=== PATIENT | male | born 1960 | race Caucasian/White ===

== ENCOUNTER 2017-04-08 23:56 | Inpatient (IN) | payer OTHER ==
[~2017-04-08] VITALS: Ht 170.2 cm; Wt 56.7 kg
[2017-04-09 00:06] VITALS: BP_SYST 106
[2017-04-09] MEDS ORDERED: NACL 0.9% 1,000 ML IV ONE ×2 (00:45→02:15)
[2017-04-09 01:01] LABS: MEAN CORPUSCULAR HEMOGLOBIN 30 pg (27-31); MEAN CORPUSCULAR HGB CONC 33 % (32-36); MEAN CORPUSCULAR VOLUME 91 fL (79.0-98.0); MONOCYTES # (AUTO) 0.9 K/uL (0.0-1.0); NEUTROPHILS % (AUTO) 90.3 % (40.0-70.0)
[2017-04-09 01:06] LABS: BASOPHILS % (AUTO) 0.2 % (0.0-2.0); HEMATOCRIT 40.1 % (36-54); HEMOGLOBIN 13.3 g/dL (14.0-18.0); LYMPHOCYTES # (AUTO) 0.5 K/uL (1.0-5.5); LYMPHOCYTES % (AUTO) 3.3 % (20.5-51.5); MONOCYTES % (AUTO) 6.2 % (1.7-9.3); NEUTROPHILS # (AUTO) 12.4 K/uL (1.8-7.7); PLATELET COUNT (AUTO) 202 K/uL (130-430); RED BLOOD CELL COUNT(AUTO) 4.42 MIL/uL (4.2-6.2); WHITE BLOOD COUNT (AUTO) 13.8 K/uL (4.8-10.8)
[2017-04-09 01:08] LABS: CALCIUM 9.4 mg/dL (8.4-11.0); CREATININE 0.87 mg/dL (0.55-1.30); POTASSIUM 4.3 mmol/L (3.5-5.1)
[2017-04-09 01:13] LABS: ALBUMIN 3.3 g/dL (3.4-4.8); TOTAL BILIRUBIN 1.1 mg/dL (0.0-1.0)
[2017-04-09] MEDS ORDERED: HALOPERIDOL LACTATE 5 MG/ML VIAL IM PRN (03:00)
[2017-04-09] MEDS ORDERED: VIS50 PO (03:37)
[2017-04-09] MEDS ORDERED: DULR10 RC (03:37)
[2017-04-09] MEDS ORDERED: ACET325T53 PO (03:37)
[2017-04-09] MEDS ORDERED: OLAN20TA3 PO (03:37)
[2017-04-09] MEDS ORDERED: TRAZ150T77 PO (03:37)
[2017-04-09] MEDS: D5LR 1,000 ML IV SCH ×3 (03:38→23:54)
[2017-04-09 03:40] VITALS: BP_SYST 107
[2017-04-09 11:32] VITALS: BP_SYST 124
[2017-04-09] MEDS ORDERED: OLANZapine IntraMuscular 10 MG VIAL (FOR I.M. INJECTION ONLY) IM ONE (13:00)
[2017-04-09] MEDS ORDERED: QUEtiapine FUMARATE 100 MG TABLET PO ONE (14:45)
[2017-04-09] MEDS ORDERED: MINERAL OIL 133 ML ENEMA RC ONE (14:45)
[2017-04-09 16:07] VITALS: BP_SYST 122
[2017-04-09 18:11] LABS: BILIRUBIN,URINE NEGATIVE (NEGATIVE); BLOOD, URINE NEGATIVE (NEGATIVE); CLARITY/URINE CLEAR (CLEAR); COLOR,URINE AMBER (YELLOW); GLUCOSE,URINE NEGATIVE (NEGATIVE); KETONES,URINE 3+ (NEGATIVE); LEUKOCYTE ESTERASE ,URINE NEGATIVE (NEGATIVE); NITRITE, URINE NEGATIVE (NEGATIVE); PH,URINE 5.5 (5.0-8.0); PROTEIN URINE TRACE (NEGATIVE); UROBILINOGEN,URINE 0.2 (0.2-1.0)
[2017-04-09 18:13] LABS: BACTERIA,URINE FEW /HPF (None Seen); MUCUS,URINE None Seen /LPF (None Seen); RBC,URINE 0-3 /HPF (0-3); WBC,URINE 0-3 /HPF (0-3)
[2017-04-09] MEDS ORDERED: QUEtiapine FUMARATE 100 MG TABLET PO SCH (21:00)
[2017-04-10 00:25] VITALS: BP_SYST 119
[2017-04-10 05:35] VITALS: BP_SYST 119
[2017-04-10 07:49] VITALS: BP_SYST 122
[2017-04-10] MEDS: D5LR 1,000 ML IV SCH ×2 (08:10→19:05)
[2017-04-10] MEDS: POLYETHYLENE GLYCOL 3350, 17 GM/ POWD.PACK PO SCH (09:00)
[2017-04-10] MEDS: QUEtiapine FUMARATE 100 MG TABLET PO SCH ×2 (09:00→21:29)
[2017-04-10] MEDS: HALOPERIDOL LACTATE 5 MG/ML VIAL IM SCH ×2 (09:01→21:13)
[2017-04-10 12:36] VITALS: BP_SYST 101
[2017-04-10] MEDS ORDERED: OLANZapine IntraMuscular 10 MG VIAL (FOR I.M. INJECTION ONLY) IM ONE (15:30)
[2017-04-10 16:00] VITALS: BP_SYST 104
[2017-04-10 20:00] VITALS: BP_SYST 102
[2017-04-10] MEDS: LORazepam 2 MG/ML VIAL IVP PRN (21:20)
[2017-04-11 02:17] VITALS: BP_SYST 114
[2017-04-11] MEDS: D5LR 1,000 ML IV SCH ×2 (05:00→14:47)
[2017-04-11 08:00] VITALS: BP_SYST 116
[2017-04-11] MEDS: POLYETHYLENE GLYCOL 3350, 17 GM/ POWD.PACK PO SCH (08:12)
[2017-04-11] MEDS: QUEtiapine FUMARATE 100 MG TABLET PO SCH ×2 (08:12→20:18)
[2017-04-11] MEDS: HALOPERIDOL LACTATE 5 MG/ML VIAL IM SCH (08:13)
[2017-04-11 12:00] VITALS: BP_SYST 118
[2017-04-11 13:21] LABS: BASOPHILS % (AUTO) 0.2 % (0.0-2.0); HEMOGLOBIN 11.1 g/dL (14.0-18.0)
[2017-04-11 13:25] LABS: EOSINOPHILS % (AUTO) 0.1 % (0.0-4.0); HEMATOCRIT 33.2 % (36-54); LYMPHOCYTES # (AUTO) 0.5 K/uL (1.0-5.5); LYMPHOCYTES % (AUTO) 5.8 % (20.5-51.5); MEAN CORPUSCULAR HEMOGLOBIN 31 pg (27-31); MEAN CORPUSCULAR HGB CONC 34 % (32-36); MEAN CORPUSCULAR VOLUME 91 fL (79.0-98.0); MONOCYTES # (AUTO) 0.5 K/uL (0.0-1.0); MONOCYTES % (AUTO) 5.7 % (1.7-9.3); NEUTROPHILS # (AUTO) 8.2 K/uL (1.8-7.7); NEUTROPHILS % (AUTO) 88.2 % (40.0-70.0); PLATELET COUNT (AUTO) 187 K/uL (130-430); RED BLOOD CELL COUNT(AUTO) 3.65 MIL/uL (4.2-6.2); WHITE BLOOD COUNT (AUTO) 9.2 K/uL (4.8-10.8)
[2017-04-11 13:37] LABS: CALCIUM 8.5 mg/dL (8.4-11.0); CREATININE 0.76 mg/dL (0.55-1.30); POTASSIUM 3.3 mmol/L (3.5-5.1)
[2017-04-11 13:53] LABS: ALBUMIN 2.2 g/dL (3.4-4.8); THYROID STIMULATING HORMONE 0.17 uIu/mL (0.34-4.82); TOTAL BILIRUBIN 0.5 mg/dL (0.0-1.0)
[2017-04-11] MEDS ORDERED: MAGNESIUM SULFATE 50 ML IV ONE (14:00)
[2017-04-11] MEDS ORDERED: POTASSIUM CHLORIDE 40 MEQ, LIDOCAINE JECT 2% PF 100 MG 50 MG in NS 250 ML IV ONE (15:00)
[2017-04-11 16:01] VITALS: BP_SYST 102
[2017-04-11] MEDS: OLANZapine 10 MG TABLET PO SCH (17:48)
[2017-04-11] MEDS ORDERED: TAMSULOSIN HCL 0.4 MG CAP PO ONE (19:00)
[2017-04-11 20:00] VITALS: BP_SYST 112
[2017-04-11] MEDS: MIRTAZAPINE 15 MG TABLET PO SCH (20:18)
[2017-04-11] MEDS: LORazepam 2 MG/ML VIAL IVP PRN (20:19)
[2017-04-12] VITALS: BP_SYST 97
[2017-04-12] MEDS: D5LR 1,000 ML IV SCH ×3 (01:15→22:20)
[2017-04-12 04:00] VITALS: BP_SYST 86
[2017-04-12] MEDS ORDERED: DOCUSATE SODIUM 100 MG CAPSULE PO PRN (07:45)
[2017-04-12] MEDS ORDERED: MILK OF MAGNESIA 30 ML UDC PO ONE (07:45)
[2017-04-12 08:00] VITALS: BP_SYST 88
[2017-04-12] MEDS: TAMSULOSIN HCL 0.4 MG CAP PO SCH (09:06)
[2017-04-12] MEDS: QUEtiapine FUMARATE 100 MG TABLET PO SCH ×2 (09:06→22:22)
[2017-04-12] MEDS: POLYETHYLENE GLYCOL 3350, 17 GM/ POWD.PACK PO SCH (09:06)
[2017-04-12 12:00] VITALS: BP_SYST 91
[2017-04-12 13:18] LABS: BASOPHILS % (AUTO) 0.3 % (0.0-2.0); EOSINOPHILS % (AUTO) 0.1 % (0.0-4.0); HEMATOCRIT 31.4 % (36-54); HEMOGLOBIN 10.7 g/dL (14.0-18.0); LYMPHOCYTES # (AUTO) 0.6 K/uL (1.0-5.5); LYMPHOCYTES % (AUTO) 12.1 % (20.5-51.5); MEAN CORPUSCULAR HEMOGLOBIN 31 pg (27-31); MEAN CORPUSCULAR HGB CONC 34 % (32-36); MEAN CORPUSCULAR VOLUME 90 fL (79.0-98.0); MONOCYTES # (AUTO) 0.5 K/uL (0.0-1.0); MONOCYTES % (AUTO) 9.3 % (1.7-9.3); NEUTROPHILS % (AUTO) 78.2 % (40.0-70.0); PLATELET COUNT (AUTO) 200 K/uL (130-430); RED BLOOD CELL COUNT(AUTO) 3.49 MIL/uL (4.2-6.2); RED CELL DISTRIBUTION WIDTH 12.3 % (9.0-15.0); WHITE BLOOD COUNT (AUTO) 5.1 K/uL (4.8-10.8)
[2017-04-12 13:27] LABS: CALCIUM 8.2 mg/dL (8.4-11.0); CREATININE 0.79 mg/dL (0.55-1.30); POTASSIUM 3.3 mmol/L (3.5-5.1)
[2017-04-12] MEDS ORDERED: POTASSIUM CHLORIDE 20 MEQ TAB.PRT.SR PO ONE (14:15)
[2017-04-12 16:00] VITALS: BP_SYST 101
[2017-04-12] MEDS: OLANZapine 10 MG TABLET PO SCH (17:40)
[2017-04-12] MEDS: MIRTAZAPINE 15 MG TABLET PO SCH (22:23)
[2017-04-13 00:09] VITALS: BP_SYST 101
[2017-04-13 08:00] VITALS: BP_SYST 115
[2017-04-13] MEDS: TAMSULOSIN HCL 0.4 MG CAP PO SCH (09:12)
[2017-04-13] MEDS: POLYETHYLENE GLYCOL 3350, 17 GM/ POWD.PACK PO SCH (09:12)
[2017-04-13] MEDS: D5LR 1,000 ML IV SCH ×2 (09:12→20:12)
[2017-04-13] MEDS: QUEtiapine FUMARATE 100 MG TABLET PO SCH ×2 (09:13→21:03)
[2017-04-13] MEDS: POTASSIUM CHLORIDE 20 MEQ TAB.PRT.SR PO SCH (09:13)
[2017-04-13 12:00] VITALS: BP_SYST 108
[2017-04-13 13:01] LABS: BASOPHILS % (AUTO) 0.2 % (0.0-2.0); EOSINOPHILS % (AUTO) 0.1 % (0.0-4.0); HEMATOCRIT 33.7 % (36-54); HEMOGLOBIN 11.4 g/dL (14.0-18.0); LYMPHOCYTES # (AUTO) 0.5 K/uL (1.0-5.5); MEAN CORPUSCULAR HEMOGLOBIN 31 pg (27-31); MEAN CORPUSCULAR HGB CONC 34 % (32-36); MEAN CORPUSCULAR VOLUME 90 fL (79.0-98.0); MONOCYTES # (AUTO) 0.4 K/uL (0.0-1.0); MONOCYTES % (AUTO) 7.4 % (1.7-9.3); NEUTROPHILS # (AUTO) 4.3 K/uL (1.8-7.7); NEUTROPHILS % (AUTO) 82.3 % (40.0-70.0); PLATELET COUNT (AUTO) 221 K/uL (130-430); RED BLOOD CELL COUNT(AUTO) 3.73 MIL/uL (4.2-6.2); RED CELL DISTRIBUTION WIDTH 12.1 % (9.0-15.0); WHITE BLOOD COUNT (AUTO) 5.3 K/uL (4.8-10.8)
[2017-04-13 13:41] LABS: CALCIUM 8.4 mg/dL (8.4-11.0); CREATININE 0.82 mg/dL (0.55-1.30); POTASSIUM 4.3 mmol/L (3.5-5.1)
[2017-04-13 13:46] LABS: TOTAL BILIRUBIN 0.4 mg/dL (0.0-1.0)
[2017-04-13 16:54] VITALS: BP_SYST 116
[2017-04-13] MEDS: LORazepam 2 MG/ML VIAL IVP PRN (18:49)
[2017-04-13 19:10] VITALS: BP_SYST 97
[2017-04-13] MEDS: MIRTAZAPINE 15 MG TABLET PO SCH (21:02)
[2017-04-13] MEDS: OLANZapine 10 MG TABLET PO SCH (21:03)
[2017-04-14 01:53] VITALS: BP_SYST 94
[2017-04-14 07:35] VITALS: BP_SYST 107; BP_SYST 131
[2017-04-14] MEDS: TAMSULOSIN HCL 0.4 MG CAP PO SCH (08:36)
[2017-04-14] MEDS: OLANZapine 10 MG TABLET PO SCH ×2 (08:36→20:28)
[2017-04-14] MEDS: POTASSIUM CHLORIDE 20 MEQ TAB.PRT.SR PO SCH (08:36)
[2017-04-14] MEDS: QUEtiapine FUMARATE 100 MG TABLET PO SCH ×2 (08:37→20:29)
[2017-04-14] MEDS: POLYETHYLENE GLYCOL 3350, 17 GM/ POWD.PACK PO SCH (08:37)
[2017-04-14] MEDS ORDERED: NA PHOS,M-B/NA PHOS,DI-BA 118 ML (FLEET ENEMA) RC ONE (17:45)
[2017-04-14 20:00] VITALS: BP_SYST 109
[2017-04-14] MEDS: MIRTAZAPINE 15 MG TABLET PO SCH (20:29)
[2017-04-15 00:08] VITALS: BP_SYST 108
[2017-04-15 07:06] LABS: CALCIUM 8.7 mg/dL (8.4-11.0); CREATININE 0.84 mg/dL (0.55-1.30); POTASSIUM 4.1 mmol/L (3.5-5.1)
[2017-04-15 07:13] LABS: BASOPHILS % (AUTO) 0.6 % (0.0-2.0); EOSINOPHILS % (AUTO) 0.2 % (0.0-4.0); HEMATOCRIT 35.5 % (36-54); HEMOGLOBIN 12.1 g/dL (14.0-18.0); LYMPHOCYTES # (AUTO) 0.7 K/uL (1.0-5.5); MEAN CORPUSCULAR HEMOGLOBIN 31 pg (27-31); MEAN CORPUSCULAR HGB CONC 34 % (32-36); MEAN CORPUSCULAR VOLUME 91 fL (79.0-98.0); MONOCYTES # (AUTO) 0.4 K/uL (0.0-1.0); MONOCYTES % (AUTO) 8.6 % (1.7-9.3); NEUTROPHILS % (AUTO) 73.6 % (40.0-70.0); PLATELET COUNT (AUTO) 263 K/uL (130-430); RED BLOOD CELL COUNT(AUTO) 3.91 MIL/uL (4.2-6.2); RED CELL DISTRIBUTION WIDTH 11.9 % (9.0-15.0); WHITE BLOOD COUNT (AUTO) 4.1 K/uL (4.8-10.8)
[2017-04-15 07:27] LABS: ALBUMIN 2.4 g/dL (3.4-4.8); TOTAL BILIRUBIN 0.6 mg/dL (0.0-1.0)
[2017-04-15 08:02] VITALS: BP_SYST 95
[2017-04-15] MEDS: POLYETHYLENE GLYCOL 3350, 17 GM/ POWD.PACK PO SCH (09:00)
[2017-04-15] MEDS: OLANZapine 10 MG TABLET PO SCH ×2 (09:00→15:00)
[2017-04-15] MEDS: POTASSIUM CHLORIDE 20 MEQ TAB.PRT.SR PO SCH (09:00)
[2017-04-15] MEDS: TAMSULOSIN HCL 0.4 MG CAP PO SCH (09:00)
[2017-04-15 12:02] VITALS: BP_SYST 116
[2017-04-15] MEDS ORDERED: OLANZapine IntraMuscular 10 MG VIAL (FOR I.M. INJECTION ONLY) IM ONE (12:30)
[2017-04-15] MEDS: QUEtiapine FUMARATE 100 MG TABLET PO SCH ×2 (15:18→20:47)
[2017-04-15 16:00] VITALS: BP_SYST 101
[2017-04-15 19:20] VITALS: BP_SYST 109
[2017-04-15 20:00] VITALS: BP_SYST 109
[2017-04-15] MEDS: MIRTAZAPINE 15 MG TABLET PO SCH (20:47)
[2017-04-16 00:05] VITALS: BP_SYST 98
[2017-04-16 08:00] VITALS: BP_SYST 95
[2017-04-16] MEDS: OLANZapine 10 MG TABLET PO SCH ×2 (09:30→20:37)
[2017-04-16] MEDS: QUEtiapine FUMARATE 100 MG TABLET PO SCH ×3 (09:30→20:37)
[2017-04-16] MEDS: TAMSULOSIN HCL 0.4 MG CAP PO SCH (09:32)
[2017-04-16] MEDS: POTASSIUM CHLORIDE 20 MEQ TAB.PRT.SR PO SCH (09:32)
[2017-04-16] MEDS: POLYETHYLENE GLYCOL 3350, 17 GM/ POWD.PACK PO SCH (09:32)
[2017-04-16 13:26] VITALS: BP_SYST 105
[2017-04-16 16:04] VITALS: BP_SYST 99
[2017-04-16 19:20] VITALS: BP_SYST 104
[2017-04-16 19:33] VITALS: BP_SYST 104
[2017-04-16] MEDS: MIRTAZAPINE 15 MG TABLET PO SCH (20:37)
[2017-04-17 08:15] VITALS: BP_SYST 114
[2017-04-17] MEDS: QUEtiapine FUMARATE 100 MG TABLET PO SCH ×3 (08:36→21:15)
[2017-04-17] MEDS: POTASSIUM CHLORIDE 20 MEQ TAB.PRT.SR PO SCH (08:38)
[2017-04-17] MEDS: TAMSULOSIN HCL 0.4 MG CAP PO SCH (08:38)
[2017-04-17] MEDS: POLYETHYLENE GLYCOL 3350, 17 GM/ POWD.PACK PO SCH (08:38)
[2017-04-17 11:14] VITALS: BP_SYST 100
[2017-04-17] MEDS: OLANZapine 10 MG TABLET PO SCH ×2 (12:07→21:04)
[2017-04-17] MEDS ORDERED: LORazepam 2 MG/ML VIAL IVP PRN (14:15)
[2017-04-17 16:00] VITALS: BP_SYST 100
[2017-04-17 20:13] VITALS: BP_SYST 94
[2017-04-17] MEDS: MIRTAZAPINE 15 MG TABLET PO SCH (21:15)
[2017-04-18 00:44] VITALS: BP_SYST 127
[2017-04-18 04:00] VITALS: BP_SYST 95
[2017-04-18 08:00] VITALS: BP_SYST 107
[2017-04-18] MEDS: POLYETHYLENE GLYCOL 3350, 17 GM/ POWD.PACK PO SCH ×2 (09:00→10:06)
[2017-04-18] MEDS: POTASSIUM CHLORIDE 20 MEQ TAB.PRT.SR PO SCH ×2 (09:00→10:06)
[2017-04-18] MEDS: TAMSULOSIN HCL 0.4 MG CAP PO SCH (10:05)
[2017-04-18] MEDS: QUEtiapine FUMARATE 100 MG TABLET PO SCH ×3 (10:05→21:23)
[2017-04-18] MEDS: OLANZapine 10 MG TABLET PO SCH ×2 (10:06→21:23)
[2017-04-18 12:09] VITALS: BP_SYST 104
[2017-04-18 16:59] VITALS: BP_SYST 109
[2017-04-18 20:03] VITALS: BP_SYST 108
[2017-04-18] MEDS: MIRTAZAPINE 15 MG TABLET PO SCH (21:24)
[2017-04-19] VITALS (7 sets, daily range): BP systolic 99–114
[2017-04-19] MEDS: POLYETHYLENE GLYCOL 3350, 17 GM/ POWD.PACK PO SCH ×2 (09:00→09:52)
[2017-04-19] MEDS: POTASSIUM CHLORIDE 20 MEQ TAB.PRT.SR PO SCH (09:49)
[2017-04-19] MEDS: QUEtiapine FUMARATE 100 MG TABLET PO SCH ×3 (09:49→21:00)
[2017-04-19] MEDS: TAMSULOSIN HCL 0.4 MG CAP PO SCH (09:49)
[2017-04-19] MEDS: OLANZapine 10 MG TABLET PO SCH ×2 (09:52→21:00)
[2017-04-19] MEDS: MIRTAZAPINE 15 MG TABLET PO SCH (21:00)
[2017-04-20 07:50] VITALS: BP_SYST 106
[2017-04-20 07:53] LABS: BASOPHILS % (AUTO) 0.1 % (0.0-2.0); HEMOGLOBIN 12.3 g/dL (14.0-18.0); LYMPHOCYTES # (AUTO) 0.4 K/uL (1.0-5.5); LYMPHOCYTES % (AUTO) 7.6 % (20.5-51.5); MEAN CORPUSCULAR HEMOGLOBIN 31 pg (27-31); MEAN CORPUSCULAR HGB CONC 34 % (32-36); MEAN CORPUSCULAR VOLUME 90 fL (79.0-98.0); MONOCYTES # (AUTO) 0.3 K/uL (0.0-1.0); MONOCYTES % (AUTO) 4.7 % (1.7-9.3); NEUTROPHILS # (AUTO) 5.1 K/uL (1.8-7.7); NEUTROPHILS % (AUTO) 87.6 % (40.0-70.0); PLATELET COUNT (AUTO) 265 K/uL (130-430); RED BLOOD CELL COUNT(AUTO) 4.01 MIL/uL (4.2-6.2); RED CELL DISTRIBUTION WIDTH 12.2 % (9.0-15.0); WHITE BLOOD COUNT (AUTO) 5.8 K/uL (4.8-10.8)
[2017-04-20 08:11] LABS: CALCIUM 8.8 mg/dL (8.4-11.0); CREATININE 0.85 mg/dL (0.55-1.30); POTASSIUM 4.6 mmol/L (3.5-5.1)
[2017-04-20 08:51] LABS: ALBUMIN 3.2 g/dL (3.4-4.8); TOTAL BILIRUBIN 0.7 mg/dL (0.0-1.0)
[2017-04-20] MEDS: POTASSIUM CHLORIDE 20 MEQ TAB.PRT.SR PO SCH (09:24)
[2017-04-20] MEDS: POLYETHYLENE GLYCOL 3350, 17 GM/ POWD.PACK PO SCH (09:24)
[2017-04-20] MEDS: TAMSULOSIN HCL 0.4 MG CAP PO SCH (09:24)
[2017-04-20] MEDS: QUEtiapine FUMARATE 100 MG TABLET PO SCH ×3 (09:25→21:43)
[2017-04-20] MEDS: OLANZapine 10 MG TABLET PO SCH ×2 (09:25→21:43)
[2017-04-20] MEDS ORDERED: DIATR MEGLU/DIATRIZ SOD 30 ML SOLUTION PO ONE (15:09)
[2017-04-20 21:30] VITALS: BP_SYST 138
[2017-04-20] MEDS: MIRTAZAPINE 15 MG TABLET PO SCH (21:44)
[2017-04-21 08:20] VITALS: BP_SYST 98
[2017-04-21] MEDS: POTASSIUM CHLORIDE 20 MEQ TAB.PRT.SR PO SCH (09:13)
[2017-04-21] MEDS: TAMSULOSIN HCL 0.4 MG CAP PO SCH (09:16)
[2017-04-21] MEDS: OLANZapine 10 MG TABLET PO SCH (09:16)
[2017-04-21] MEDS: QUEtiapine FUMARATE 100 MG TABLET PO SCH ×3 (09:16→21:00)
[2017-04-21] MEDS: POLYETHYLENE GLYCOL 3350, 17 GM/ POWD.PACK PO SCH (09:16)
[2017-04-21] MEDS ORDERED: TAMSULOSIN HCL 0.4 MG CAP ONE (09:35)
[2017-04-21] MEDS ORDERED: LORazepam 2 MG/ML VIAL (FOR ER USE) IVP PRN (10:15)
[2017-04-21] MEDS: LORazepam 2 MG/ML VIAL IVP SCH ×2 (11:30→17:00)
[2017-04-21 12:02] VITALS: BP_SYST 111
[2017-04-21] MEDS ORDERED: LORazepam 2 MG/ML VIAL IVP PRN (14:15)
[2017-04-21] MEDS ORDERED: BISACODYL 5 MG TABLET.DR (DULCOLAX) PO ONE (14:30)
[2017-04-21 16:53] VITALS: BP_SYST 92
[2017-04-21 20:00] VITALS: BP_SYST 93
[2017-04-21] MEDS: OLANZapine 10 MG TAB.RAPDIS PO SCH (21:00)
[2017-04-21] MEDS: MIRTAZAPINE 15 MG TABLET PO SCH (21:12)
[2017-04-22 00:38] VITALS: BP_SYST 94
[2017-04-22] MEDS: LORazepam 2 MG/ML VIAL IVP SCH ×3 (07:00→17:00)
[2017-04-22 08:01] VITALS: BP_SYST 87
[2017-04-22 08:24] VITALS: BP_SYST 87
[2017-04-22] MEDS: TAMSULOSIN HCL 0.4 MG CAP PO SCH (09:02)
[2017-04-22] MEDS: POTASSIUM CHLORIDE 20 MEQ TAB.PRT.SR PO SCH (09:02)
[2017-04-22] MEDS: POLYETHYLENE GLYCOL 3350, 17 GM/ POWD.PACK PO SCH (09:02)
[2017-04-22] MEDS: QUEtiapine FUMARATE 100 MG TABLET PO SCH ×3 (09:02→21:00)
[2017-04-22] MEDS: OLANZapine 10 MG TAB.RAPDIS PO SCH ×2 (09:03→21:00)
[2017-04-22 12:00] VITALS: BP_SYST 98
[2017-04-22] MEDS: MILK OF MAGNESIA 30 ML UDC PO SCH (15:36)
[2017-04-22 16:00] VITALS: BP_SYST 93
[2017-04-22 20:00] VITALS: BP_SYST 93
[2017-04-22] MEDS: MIRTAZAPINE 15 MG TABLET PO SCH (21:00)
[2017-04-23 00:50] VITALS: BP_SYST 106; BP_SYST 150
[2017-04-23] MEDS: LORazepam 2 MG/ML VIAL IVP SCH ×3 (06:30→18:02)
[2017-04-23 07:53] VITALS: BP_SYST 106
[2017-04-23 08:40] VITALS: BP_SYST 106
[2017-04-23] MEDS: POTASSIUM CHLORIDE 20 MEQ TAB.PRT.SR PO SCH (09:42)
[2017-04-23] MEDS: TAMSULOSIN HCL 0.4 MG CAP PO SCH (09:43)
[2017-04-23] MEDS: QUEtiapine FUMARATE 100 MG TABLET PO SCH ×3 (09:44→20:37)
[2017-04-23] MEDS: OLANZapine 10 MG TAB.RAPDIS PO SCH ×2 (09:45→20:38)
[2017-04-23] MEDS: MILK OF MAGNESIA 30 ML UDC PO SCH (09:49)
[2017-04-23 09:50] LABS: BASOPHILS % (AUTO) 0.4 % (0.0-2.0); HEMATOCRIT 37.3 % (36-54); HEMOGLOBIN 12.4 g/dL (14.0-18.0); LYMPHOCYTES # (AUTO) 0.3 K/uL (1.0-5.5); LYMPHOCYTES % (AUTO) 5.4 % (20.5-51.5); MEAN CORPUSCULAR HEMOGLOBIN 30 pg (27-31); MEAN CORPUSCULAR HGB CONC 33 % (32-36); MEAN CORPUSCULAR VOLUME 91 fL (79.0-98.0); MONOCYTES # (AUTO) 0.4 K/uL (0.0-1.0); MONOCYTES % (AUTO) 6.3 % (1.7-9.3); NEUTROPHILS # (AUTO) 4.9 K/uL (1.8-7.7); NEUTROPHILS % (AUTO) 87.9 % (40.0-70.0); PLATELET COUNT (AUTO) 216 K/uL (130-430); RED CELL DISTRIBUTION WIDTH 13.1 % (9.0-15.0); WHITE BLOOD COUNT (AUTO) 5.6 K/uL (4.8-10.8)
[2017-04-23] MEDS: POLYETHYLENE GLYCOL 3350, 17 GM/ POWD.PACK PO SCH (09:50)
[2017-04-23 10:04] LABS: ALBUMIN 3.2 g/dL (3.4-4.8); CALCIUM 8.9 mg/dL (8.4-11.0); CREATININE 0.88 mg/dL (0.55-1.30); TOTAL BILIRUBIN 0.9 mg/dL (0.0-1.0)
[2017-04-23 10:51] LABS: ERYTHROCYTE SEDIMENTATION RATE 13 MM/HR (0-15)
[2017-04-23 12:07] VITALS: BP_SYST 98
[2017-04-23 16:00] VITALS: BP_SYST 88
[2017-04-23 20:00] VITALS: BP_SYST 93
[2017-04-23] MEDS: MIRTAZAPINE 15 MG TABLET PO SCH (20:37)
[2017-04-24] MEDS: LORazepam 2 MG/ML VIAL IVP SCH ×3 (06:19→18:13)
[2017-04-24] MEDS: POTASSIUM CHLORIDE 20 MEQ TAB.PRT.SR PO SCH (09:59)
[2017-04-24] MEDS: POLYETHYLENE GLYCOL 3350, 17 GM/ POWD.PACK PO SCH (10:00)
[2017-04-24] MEDS: QUEtiapine FUMARATE 100 MG TABLET PO SCH ×3 (10:00→20:24)
[2017-04-24] MEDS: TAMSULOSIN HCL 0.4 MG CAP PO SCH (10:00)
[2017-04-24] MEDS: MILK OF MAGNESIA 30 ML UDC PO SCH (10:00)
[2017-04-24] MEDS: OLANZapine 10 MG TAB.RAPDIS PO SCH ×2 (10:18→20:24)
[2017-04-24 12:00] VITALS: BP_SYST 79
[2017-04-24 16:00] VITALS: BP_SYST 65
[2017-04-24 18:13] VITALS: BP_SYST 86
[2017-04-24 19:05] VITALS: BP_SYST 97
[2017-04-24] MEDS: MIRTAZAPINE 15 MG TABLET PO SCH (20:24)
[2017-04-25] MEDS: LORazepam 2 MG/ML VIAL IVP SCH ×2 (06:41→12:59)
[2017-04-25 08:00] LABS: CALCIUM 8.3 mg/dL (8.4-11.0); CHLORIDE 106 mmol/L (98-107); CREATININE 0.77 mg/dL (0.55-1.30); GLUCOSE 103 mg/dL (70-99); POTASSIUM 4.5 mmol/L (3.5-5.1); SODIUM SERUM 140 mmol/L (136-145); UREA NITROGEN, BLOOD 23 mg/dL (8-21)
[2017-04-25 08:10] LABS: ALANINE AMINOTRANSFERASE 16 U/L (12-78); ALBUMIN 2.5 g/dL (3.4-4.8); ASPARTATE AMINOTRANSFERASE 9 U/L (10-37); TOTAL BILIRUBIN 0.7 mg/dL (0.0-1.0)
[2017-04-25 08:15] LABS: ANION GAP < 3 (5-15); GFR AFRICAN AMERICAN 133 mL/min (>90)
[2017-04-25 08:21] LABS: BASOPHILS % (AUTO) 0.1 % (0.0-2.0); EOSINOPHILS % (AUTO) 0.1 % (0.0-4.0); HEMATOCRIT 32.7 % (36-54); HEMOGLOBIN 11.1 g/dL (14.0-18.0); LYMPHOCYTES # (AUTO) 0.4 K/uL (1.0-5.5); LYMPHOCYTES % (AUTO) 10.8 % (20.5-51.5); MEAN CORPUSCULAR HEMOGLOBIN 31 pg (27-31); MEAN CORPUSCULAR HGB CONC 34 % (32-36); MEAN CORPUSCULAR VOLUME 90 fL (79.0-98.0); MONOCYTES # (AUTO) 0.4 K/uL (0.0-1.0); MONOCYTES % (AUTO) 11.1 % (1.7-9.3); NEUTROPHILS # (AUTO) 2.5 K/uL (1.8-7.7); NEUTROPHILS % (AUTO) 77.9 % (40.0-70.0); PLATELET COUNT (AUTO) 156 K/uL (130-430); RED BLOOD CELL COUNT(AUTO) 3.62 MIL/uL (4.2-6.2); RED CELL DISTRIBUTION WIDTH 12.8 % (9.0-15.0); WHITE BLOOD COUNT (AUTO) 3.4 K/uL (4.8-10.8)
[2017-04-25] MEDS: OLANZapine 10 MG TAB.RAPDIS PO SCH ×2 (10:13→21:36)
[2017-04-25] MEDS: POTASSIUM CHLORIDE 20 MEQ TAB.PRT.SR PO SCH (10:13)
[2017-04-25] MEDS: MILK OF MAGNESIA 30 ML UDC PO SCH (10:13)
[2017-04-25] MEDS: POLYETHYLENE GLYCOL 3350, 17 GM/ POWD.PACK PO SCH (10:13)
[2017-04-25] MEDS: QUEtiapine FUMARATE 100 MG TABLET PO SCH ×3 (10:14→21:35)
[2017-04-25] MEDS: TAMSULOSIN HCL 0.4 MG CAP PO SCH (10:20)
[2017-04-25 12:00] VITALS: BP_SYST 164
[2017-04-25 14:56] VITALS: BP_SYST 79
[2017-04-25 16:12] VITALS: BP_SYST 90
[2017-04-25] MEDS ORDERED: LORazepam 1 MG TABLET PO SCH (18:00)
[2017-04-25] MEDS ORDERED: LORazepam 1 MG TABLET PO ONE (18:00)
[2017-04-25 19:00] VITALS: BP_SYST 101
[2017-04-25 20:00] VITALS: BP_SYST 101
[2017-04-25] MEDS: LORazepam 1 MG TABLET PO SCH (21:33)
[2017-04-25] MEDS: MIRTAZAPINE 15 MG TABLET PO SCH (21:35)
[2017-04-25 23:45] VITALS: BP_SYST 100
[2017-04-26] VITALS: BP_SYST 103
[2017-04-26 07:24] LABS: BASOPHILS % (AUTO) 0.7 % (0.0-2.0); EOSINOPHILS % (AUTO) 0.1 % (0.0-4.0); HEMATOCRIT 31.8 % (36-54); HEMOGLOBIN 10.8 g/dL (14.0-18.0); LYMPHOCYTES # (AUTO) 0.4 K/uL (1.0-5.5); LYMPHOCYTES % (AUTO) 12.1 % (20.5-51.5); MEAN CORPUSCULAR HEMOGLOBIN 31 pg (27-31); MEAN CORPUSCULAR HGB CONC 34 % (32-36); MEAN CORPUSCULAR VOLUME 90 fL (79.0-98.0); MONOCYTES # (AUTO) 0.3 K/uL (0.0-1.0); MONOCYTES % (AUTO) 9.3 % (1.7-9.3); NEUTROPHILS # (AUTO) 2.5 K/uL (1.8-7.7); NEUTROPHILS % (AUTO) 77.8 % (40.0-70.0); PLATELET COUNT (AUTO) 141 K/uL (130-430); RED BLOOD CELL COUNT(AUTO) 3.52 MIL/uL (4.2-6.2); RED CELL DISTRIBUTION WIDTH 13.4 % (9.0-15.0); WHITE BLOOD COUNT (AUTO) 3.2 K/uL (4.8-10.8)
[2017-04-26 08:00] VITALS: BP_SYST 84
[2017-04-26 08:05] LABS: ALANINE AMINOTRANSFERASE 27 U/L (12-78); ALBUMIN 2.6 g/dL (3.4-4.8); ASPARTATE AMINOTRANSFERASE 20 U/L (10-37); CALCIUM 8.6 mg/dL (8.4-11.0); CHLORIDE 105 mmol/L (98-107); CREATININE 0.84 mg/dL (0.55-1.30); FREE T4 (FREE THYROXINE) 0.7 ng/dL (0.6-1.6); GLUCOSE 88 mg/dL (70-99); SODIUM SERUM 138 mmol/L (136-145); THYROID STIMULATING HORMONE 1.09 uIu/mL (0.34-4.82); TOTAL BILIRUBIN 0.6 mg/dL (0.0-1.0); UREA NITROGEN, BLOOD 18 mg/dL (8-21)
[2017-04-26 08:34] LABS: ANION GAP < 3 (5-15); GFR AFRICAN AMERICAN 121 mL/min (>90)
[2017-04-26] MEDS: POTASSIUM CHLORIDE 20 MEQ TAB.PRT.SR PO SCH (09:00)
[2017-04-26] MEDS: TAMSULOSIN HCL 0.4 MG CAP PO SCH (09:00)
[2017-04-26] MEDS: POLYETHYLENE GLYCOL 3350, 17 GM/ POWD.PACK PO SCH ×2 (09:00→09:14)
[2017-04-26] MEDS: OLANZapine 10 MG TAB.RAPDIS PO SCH (09:00)
[2017-04-26] MEDS: LORazepam 1 MG TABLET PO SCH (09:00)
[2017-04-26] MEDS: MILK OF MAGNESIA 30 ML UDC PO SCH (09:00)
[2017-04-26] MEDS: QUEtiapine FUMARATE 100 MG TABLET PO SCH (09:16)
[2017-04-26 10:26] VITALS: BP_SYST 90
== END 2017-04-26 12:17 | disposition home or self-care (01) | DRG 885 ==
LOC: SED 23:56 → STU 04-09 02:53 → SMU 04-09 14:28
PROVIDERS: ADMIT Internal Medicine; ATTEND Internal Medicine
DX: F23 Brief psychotic disorder (principal); E43 Unspecified severe protein-calorie malnutrition; Z68.1 Body mass index [BMI] 19.9 or less, adult; I10 Essential (primary) hypertension; N40.0 Benign prostatic hyperplasia without lower urinary tract symptoms; R13.10 Dysphagia, unspecified; J40 Bronchitis, not specified as acute or chronic; R00.0 Tachycardia, unspecified; D72.829 Elevated white blood cell count, unspecified; Z60.2 Problems related to living alone; K59.00 Constipation, unspecified; R62.7 Adult failure to thrive; R60.0 Localized edema; Z59.0 Homelessness; Z79.899 Other long term (current) drug therapy
CPT/HCPCS: 36415; 70360-TC; 70490; 71010; 74000-TC; 80048; 80053; 81000-TC; 83605; 83690-TC; 83735-TC; 83880; 84439; 84443-TC; 85025; 85651-TC; 87040-TC; 87081; 93005; 93970; 96361; 96365; 99285; J1630; J1956; J2060; J3475; J3480; J3490; J7030; J7050; J7120; Q9964